=== PATIENT | male | born 1930 | race Caucasian/White ===

== ENCOUNTER 2017-03-22 00:24 | Observation (INO) | payer OTHER, BC ==
[2017-03-22 00:56] VITALS: BMI 29.2
[2017-03-22] MEDS ORDERED: SODIUM CHLORIDE 1,000 ML IV STA (01:07)
--- NOTE | 2017-03-22 01:25 | PDOC ---
History of Present Illness - General History Source: Patient, Spouse, Old Records Exam Limitations: No Limitations - History of Present Illness Initial Comments: 03/22/17 01:27 The patient is an 86 year old male, with a significant past medical history of hyperlipidemia and angina (on Cardizem), who presents to the emergency department with weakness just prior to presentation to the ED. The patient states that he was in his usual state of health earlier this evening. Tonight, the patient states that he was sitting watching TV and dosed off. When he woke up and stood up to go to bed, he suddenly felt weak with associated lightheadedness and nausea. The patient states that he felt like he was going to syncopize but he reports that he did not. He also reports that he did not vomit at that time. EMS was initiated and the patient was brought to the ED for further evaluation. The patients is at the bedside. She reports that she gave the patient Meclizine prior to arrival of EMS. The patient reports that he has never experienced an episode like this in the past. Currently in the ED, the patient states that he continues to feel weak. The patient denies any blurry vision, headache or chest pain. The patient denies fever, chills, vomiting, diarrhea, melena/bpr, abdominal pain or dysuria. The patient denies any recent travel. Allergies: None reported. Past Surgical History: None reported. Social History: Non smoker. Reports one alcoholic drink (beer or wine) with dinner daily. Denies drug use. PCP: Dr. Sylvester Glove Machine Operator: Dr. Hart <Casandra Urbano - Last Filed: 03/22/17 01:28> <Lenny Izquierdo - Last Filed: 03/22/17 01:56> <Dilia Golden - Last Filed: 03/22/17 06:16> - General Stated Complaint: WEAKNESS Time Seen by Provider: 03/22/17 00:44 Past History <Casandra Urbano - Last Filed: 03/22/17 01:28> - Past Medical History Cardiac Disorders: Yes (Coronary Artery Disease) Hypercholesterolemia: Yes - Immunization History Immunization Up to Date: Yes - Psycho/Social/Smoking Cessation Hx Anxiety: No Suicidal Ideation: No Smoking History: Never smoked Hx Alcohol Use: No Drug/Substance Use Hx: No Substance Use Type: None Hx Substance Use Treatment: No <Lenny Izquierdo - Last Filed: 03/22/17 01:56> <Dilia Golden - Last Filed: 03/22/17 06:16> - Past Medical History Allergies/Adverse Reactions: Allergies Allergy/AdvReac Type Severity Reaction Status Date / Time No Known Allergies Allergy Verified 01/14/15 12:52 Home Medications: Ambulatory Orders Aspirin [ASA -] 81 mg PO DAILY 01/08/15 Diltiazem Cd [Cardizem Cd -] 120 mg PO DAILY 01/08/15 Ezetimibe/Simvastatin [Vytorin 10-40 mg Tablet] 1 tab PO DAILY 01/08/15 Review of Systems - Review of Systems Able to Perform ROS?: Yes Comments:: 03/22/17 01:27 CONSTITUTIONAL: +Weakness. No fever, no chills, no fatigue EYES: No visual changes ENT: No ear pain, no sore throat CARDIOVASCULAR: +Lightheadedness. No chest pain, no palpitations RESPIRATORY: No cough, no SOB GI: +Nausea. No abdominal pain, no vomiting, no constipation, no diarrhea GENITOURINARY: No dysuria, no frequency, no hematuria MUSKULOSKELETAL: No back pain, no joint pain, no myalgias SKIN: No rash NEURO: No headache <Casandra Urbano - Last Filed: 03/22/17 01:28> *Physical Exam - Vital Signs Last Vital Signs Temp Pulse Resp BP Pulse Ox 98.6 F 80 25 H 172/96 98 03/22/17 00:47 03/22/17 00:47 03/22/17 00:47 03/22/17 00:47 03/22/17 00:47 - Physical Exam Comments: 03/22/17 01:27 CONSTITUTIONAL: Well-appearing; well-nourished; in no apparent distress. HEAD: Normocephalic; atraumatic. EYES: PERRL; EOM intact. ENMT: External appears normal; normal oropharynx. NECK: Supple; non-tender; no cervical lymphadenopathy. CARD: Normal S1, S2; no murmurs, rubs, or gallops. RESP: Normal chest excursion with respiration; breath sounds clear and equal bilaterally; no wheezes, rhonchi, or rales. ABD: Soft, non-distended; non-tender; no palpable organomegaly, no palpable hernias. EXT: Normal ROM in all four extremities; non-tender to palpation; distal pulses intact. SKIN: Warm, dry, no rash. <Casandra Urbano - Last Filed: 03/22/17 01:28> - Vital Signs Last Vital Signs Temp Pulse Resp BP Pulse Ox 98.6 F 80 25 H 172/96 98 03/22/17 00:47 03/22/17 00:47 03/22/17 00:47 03/22/17 00:47 03/22/17 00:47 - Physical Exam Comments: NEURO: Cranial nerves II through XII are grossly intact; motor is 5 of 54; no pronation drift; no dysmetria; no dysdiadochokinesia; rapid alternating movements are intact bilaterally; finger to nose is intact bilaterally; heel-to- [place] is intact bilaterally; gait-deferred at this time. Fine touch and proprioception are intact bilaterally; <Lenny Izquierdo - Last Filed: 03/22/17 01:56> - Vital Signs Last Vital Signs Temp Pulse Resp BP Pulse Ox 98.6 F 80 25 H 172/96 98 03/22/17 00:47 03/22/17 00:47 03/22/17 00:47 03/22/17 00:47 03/22/17 00:47 <Dilia Golden - Last Filed: 03/22/17 06:16> Heart Score/ECG Review #1 ECG reviewed & interpreted by me at: 00:37 (Vent Rate: 73 bpm. Sinus rhythm with occasional premature ventricular complexes. Unchanged from prior ECG on .) <Casandra Urbano - Last Filed: 03/22/17 01:28> ED Treatment Course - LABORATORY CBC & Chemistry Diagram: 03/22/17 01:25 03/22/17 01:25 - RADIOLOGY Radiology Studies Ordered: Category Date Time Status HEAD CT WITHOUT CONTRAST [CT] Stat CT Scan 03/22/17 01:06 Ordered CHEST X-RAY PORTABLE* [RAD] Stat Radiology 03/22/17 01:06 Ordered <Lenny Izquierdo - Last Filed: 03/22/17 01:56> - LABORATORY CBC & Chemistry Diagram: 03/22/17 01:25 03/22/17 01:25 - ADDITIONAL ORDERS Additional order review: Laboratory Results 03/22/17 03/22/17 03/22/17 04:05 01:25 01:25 INR 1.18 H Sodium 140 Potassium 3.9 Chloride 106 Carbon Dioxide 25 Anion Gap 9 BUN 20 H Creatinine 1.2 Creat Clearance w eGFR 57.68 Random Glucose 116 H Calcium 8.2 L Magnesium 2.2 Total Bilirubin 0.5 AST 32 ALT 22 D Alkaline Phosphatase 94 Creatine Kinase 101 Troponin I < 0.02 Total Protein 7.6 Albumin 3.2 L Urine Color Ltyellow Urine Appearance Clear Urine pH 5.0 Ur Specific [place] 1.014 Urine Protein Negative Urine Glucose (UA) Negative Urine Ketones Negative Urine Blood Negative Urine Nitrite Negative Urine Bilirubin Negative Urine Urobilinogen Negative Ur Leukocyte Esterase Negative 03/22/17 01:25 RBC 3.73 L MCV 96.1 H MCHC 35.2 RDW 13.3 MPV 9.4 Neutrophils % 65.6 D Lymphocytes % 19.0 D Monocytes % 12.4 H Eosinophils % 2.3 D Basophils % 0.7 - Medications Given in the ED: ED Medications Discontinued Medications Generic Name Dose Route Start Last Admin Trade Name Freq PRN Reason Stop Dose Admin Sodium Chloride 1,000 mls @ 1,000 mls/hr 03/22/17 01:07 03/22/17 01:18 Normal Saline - IV 03/22/17 02:06 1,000 mls/hr ASDIR STA Administration <Dilia Golden - Last Filed: 03/22/17 06:16> Medical Decision Making - Medical Decision Making 03/22/17 01:58 Patient is an 86-year-old male with history of hyperlipidemia and angina who presents to the ER by EMS for near syncopal symptoms associated with generalized weakness and malaise with nausea and lightheadedness shortly prior to arrival. In the ER, patient is awake and alert, mildly hypertensive, with no focal neurological deficits. EKG shows no evidence of acute ischemia and infrequent PVCs are noted. Differential diagnoses includes vasovagal syndrome versus paroxysmal atrial fibrillation versus Rosales Jona (given patient's recent bout of earache). Will obtain CT head to rule out intracranial pathology ; we'll obtain CBC/CMP/cardiac profile/magnesium/UA. Will hydrate. Will reassess. <Lenny Izquierdo - Last Filed: 03/22/17 01:56> - Medical Decision Making 03/22/17 05:12 Patient Name: Cuate Beard This is a preliminary report by imaging motion picture projectionist Exam : Noncontrast CT of head Images: 148 Clinical indication: Weakness. Dizziness. Findings: Multiple axial images were obtained of the brain without contrast. There is no mass-effect, midline shift or hemorrhage. There is no intra-axial or extra-axial fluid collection. Atrophic involutional changes and chronic ischemic periventricular white matter changes are noted. The visualized portions of the paranasal sinuses are clear. The middle ear cavities and mastoids are clear. Impression: No mass effect or intracranial hemorrhage. THIS DOCUMENT HAS BEEN ELECTRONICALLY SIGNED Rusty Noland M.D. Pt will be admitted to the hospitalist. He is a Dr. Sylvester patient. Dr. Smith is his supervisor wall mirror department. 03/22/17 06:11 Dr. Luna is covering Dr. Sylvester and he will see the patient on consult <Dilia Golden - Last Filed: 03/22/17 06:16> *DC/Admit/Observation/Transfer - Attestations Scribe Attestion: 03/22/17 01:27 Documentation prepared by Casandra Urbano, acting as medical anthropology director for Lenny Izquierdo MD. <Casandra Urbano - Last Filed: 03/22/17 01:28> - Attestations Physician Attestion: 03/22/17 01:56 The documentation was prepared by the scribe under my direct supervision. I have reviewed the documentation which correctly represents the findings, medical decision-making and critical action taken by me. <Lenny Izquierdo - Last Filed: 03/22/17 01:56> - Discharge Dispostion Admit: Yes <Dilia Golden - Last Filed: 03/22/17 06:16> Diagnosis at time of Disposition: Dizziness, Pre-syncope, Weakness - Discharge Dispostion Condition at time of disposition: Guarded - Referrals Referrals: Stanley Sylvester MD [Primary Care Provider] -
[2017-03-22 01:35] LABS: BASOPHIL 0.7 % (0-2.0); EOSINOPHIL 2.3 % (0-4.5); MCH 33.8 pg (25.7-33.7); MCHC 35.2 g/dl (32.0-35.9); MEAN CELL VOLUME 96.1 fl (80-96); MEAN PLT VOLUME 9.4 fl (7.5-11.1); NEUTROPHILS 65.6 % (42.8-82.8); PLATELET COUNT 158 K/MM3 (134-434); RDW 13.3 % (11.9-15.9); WHITE BLOOD COUNT 4.2 K/mm3 (4.0-10.0)
[2017-03-22 01:56] LABS: ALBUMIN 3.2 g/dl (3.4-5.0); ANION GAP 9 (8-16); CALCIUM 8.2 mg/dL (8.5-10.1); CO2 25 mmol/L (21-32); COCKROFT - GAULT 65.26; CREATININE 1.2 mg/dL (0.7-1.3); GLUCOSE,RANDOM 116 mg/dL (74-106); INR 1.18 (0.82-1.09); MAGNESIUM 2.2 mg/dL (1.8-2.4); SGOT/AST 32 U/L (15-37); SGPT/ALT 22 U/L (12-78)
[2017-03-22 02:01] LABS: ALK PHOS 94 U/L (45-117); BILIRUBIN,TOTAL 0.5 mg/dL (0.2-1.0); TOT PROT 7.6 g/dl (6.4-8.2); TROPONIN I < 0.02 ng/ml (0.00-0.05)
[2017-03-22 04:17] LABS: URINE APPEARANCE CLEAR; URINE BILIRUBIN NEGATIVE (NEGATIVE); URINE BLOOD NEGATIVE (NEGATIVE); URINE COLOR LTYELLOW; URINE GLUCOSE (UA) NEGATIVE (NEGATIVE); URINE KETONE NEGATIVE (NEGATIVE); URINE LEUK ESTERASE NEGATIVE (NEGATIVE); URINE NITRITE NEGATIVE (NEGATIVE); URINE PROTEIN NEGATIVE (NEGATIVE); URINE UROBILINOGEN NEGATIVE E.U./dl (0.2-1.0)
[2017-03-22] MEDS ORDERED: ASPIRIN 81 MG CHEWABLE TABLETS ONE (09:54)
[2017-03-22] MEDS: ATORVASTATIN CA 20 MG TABLET (FP) PO SCH (10:05)
[2017-03-22] MEDS: EZETIMIBE 10 MG TABLET (FP) PO SCH (10:05)
[2017-03-22] MEDS: ASPIRIN 81 MG CHEWABLE TABLETS PO SCH (10:05)
[2017-03-22 10:13] LABS: THYROID STIMULATING HORMONE 2.33 uIU/ml (0.358-3.74); TROPONIN I < 0.02 ng/ml (0.00-0.05)
--- NOTE | 2017-03-22 11:07 | HP ---
CHIEF COMPLAINT: "I almost passed out" PCP: Dr Montaño Cardio: Dr Hart HISTORY OF PRESENT ILLNESS: This is an 86 yo M with PMH of CAD, angina (on cardizem), sleep apnea, Cured colon CA s/p resection 3 yrs ago (no chemo/rad) and prostate CA s/p prostatectomy 20 yrs ago, who presents to ed after a near syncopal episode last night. Patient states that he fell asleep in a sitting position and when woke up , still in sitting position, he felt a hot flash, diaphoretic and dizziness. when he tried to get up to go to bathroom, he felt nauseaous and weak. There was no associated loc, chest pain, palpitations or sob. He did not fall. these symptoms lasted for an hr and began to resolve when he got to ED. These symptoms have never occurred before. He suffers from frequency due to prostatectomy and avoids hydrating because he does not like to get up at night to go to bathroom. He denies angina but states that he gets out of breath and dizzy after exercising on his bicycle. He denies palpitations, sob, cough or history of arrythmia. He does have orthopnea and sleep apnea (not on bipap) but has not required increased incline for sleep. He denies weight gain, anorexia or LE edema. He had a normal stress test several years ago. He has never had an CO, arrythmia or heart failure. He denies recent URI, abd pain, diarrhea or dysuria. ER course was notable for: (1)Labs, ekg (2)cxr, head CT (3)1L NS Recent Travel: denies PAST MEDICAL HISTORY: as above PAST SURGICAL HISTORY: as above Social History: lives with Smoking: never Alcohol: 1 drink per day Drugs: never Family History: heart disease, hld Allergies No Known Allergies Allergy (Verified 01/14/15 12:52) HOME MEDICATIONS: Home Medications Medication Instructions Recorded Aspirin [ASA -] 81 mg PO DAILY 01/08/15 Diltiazem Cd [Cardizem Cd -] 120 mg PO DAILY 01/08/15 Ezetimibe/Simvastatin [Vytorin 1 tab PO DAILY 01/08/15 10-40 mg Tablet] REVIEW OF SYSTEMS CONSTITUTIONAL: Absent: fever, chills, loss of appetite, weight change HEENT: Absent: rhinorrhea, nasal congestion, throat pain CARDIOVASCULAR: Absent: chest pain, syncope, palpitations, irregular heart rate, peripheral edema RESPIRATORY: Absent: cough, shortness of breath GASTROINTESTINAL: Absent: abdominal pain, abdominal distension, vomiting, diarrhea, constipation, melena, hematochezia GENITOURINARY: Absent: dysuria, flank pain MUSCULOSKELETAL: Absent: myalgia, arthralgia SKIN: Absent: rash, itching, pallor HEMATOLOGIC/IMMUNOLOGIC: Absent: easy bleeding, easy bruising ENDOCRINE: Absent: unexplained weight gain, unexplained weight loss, heat intolerance, cold intolerance NEUROLOGIC: Absent: headache, focal weakness or paresthesias, seizure PSYCHIATRIC: Absent: anxiety, depression PHYSICAL EXAMINATION Vital Signs - 24 hr 03/22/17 03/22/17 09:04 09:05 Pulse Rate [ 80 82 Right Radial] Blood Pressure 159/100 140/71 [Left Arm] GENERAL: Awake, alert, and fully oriented, in no acute distress. HEAD: Normal with no signs of trauma. EYES: Pupils equal, round and reactive to light, extraocular movements intact, sclera anicteric, conjunctiva clear. No lid lag. EARS, NOSE, THROAT: Moist mucous membranes. NECK: supple without JVD LUNGS: Breath sounds equal, mild bibasilar crackle, otherwise clear to auscultation bilaterally. HEART: Regular rate and rhythm, normal S1 and S2, grade 2 systolic murmur ABDOMEN: Soft, nontender, not distended, normoactive bowel sounds MUSCULOSKELETAL: No CVA tenderness. UPPER EXTREMITIES: 2+ pulses, warm, well-perfused. No peripheral edema. LOWER EXTREMITIES: 2+ pulses, warm, well-perfused. No calf tenderness. trace L ankle peripheral edema. NEUROLOGICAL: Cranial nerves II-XII intact. Normal speech. Normal gait. RUE 5/ 5 strength, GUERDA 4/5 bicep and roll former, 5/5 tricep, shoulders. LE 5/5 b/l strength PSYCHIATRIC: Cooperative. Good eye contact. Appropriate mood and affect. SKIN: Warm, dry Laboratory Results - last 24 hr 03/22/17 09:22 Troponin I < 0.02 B-Natriuretic Peptide 188.47 TSH 2.33 Free T4 0.90 ASSESSMENT/PLAN: This is an 86 yo M with PMH of CAD, angina (on cardizem), sleep apnea, Cured colon CA s/p resection 3 yrs ago (no chemo/rad) and prostate CA s/p prostatectomy 20 yrs ago, who presents to ed after a near syncopal episode last night. Near syncope -likely vasovagal/orthostatic -positive orthostatic vitals -history of water restriction -EKG l axis, sinus, PVCs, no change from prior, CXR poor inspiratory effort may falsely appear as cardiomegaly and bibasilar conbestion -tele: frequent PVC's -neg tro x2 and neg BNP -TSH, fT4 whl -Lipid panel -r/o arrythmia: tele monitoring -Cardio consult; TTE or obtain recent TTE records -IV hydration; slow careful positional change HLD -continue ezetimibe/symvastatin 10-40 or formulary equivalent CAD -asa 81 -cardizem 120 d Sleep apnea -not on bipap FEN NS@75 lytes stable Na restricted diet Dispo: obs in med [facility]. Problem List - Problem (1) Dizziness Code(s): R42 - DIZZINESS AND GIDDINESS (2) Pre-syncope Code(s): R55 - SYNCOPE AND COLLAPSE (3) Weakness Code(s): R53.1 - WEAKNESS (4) HLD (hyperlipidemia) Code(s): E78.5 - HYPERLIPIDEMIA, UNSPECIFIED (5) CAD (coronary artery disease) Code(s): I25.10 - ATHSCL HEART DISEASE OF [place] CORONARY ARTERY W/O ANG PCTRS (6) History of prostate cancer Code(s): Z85.46 - PERSONAL HISTORY OF MALIGNANT NEOPLASM OF PROSTATE (7) History of colon cancer, stage I Code(s): Z85.038 - PERSONAL HISTORY OF MALIGNANT NEOPLASM OF LARGE INTESTINE (8) Volume depletion Code(s): E86.9 - VOLUME DEPLETION, UNSPECIFIED Visit type - Emergency Visit Emergency Visit: Yes ED Registration Date: 03/22/17 Care time: The patient presented to the Emergency Department on the above date and was hospitalized for further evaluation of their emergent condition. - New Patient This patient is new to me today: Yes Date on this admission: 03/22/17 - Critical Care Critical Care patient: No
[2017-03-22] MEDS ORDERED: SODIUM CHLORIDE 1,000 ML IV SCH ×2 (11:30→14:00)
--- NOTE | 2017-03-22 11:42 | PN ---
Teaching Attending Note Name of Resident: Briseyda Johnson ATTENDING PHYSICIAN STATEMENT I saw and evaluated the patient. I reviewed the resident's note and discussed the case with the resident. I agree with the resident's findings and plan as documented. SUBJECTIVE: CC: near syncope HPI: last night slept while watching TV. when he wok up , and before trying to get up he felt light headed , with nauseous feeling . denied vertigo, CRISOSTOMO , visual changes or any CP or SOB. he aske his to help him to bathroom, where he had both BM and urine , continued to feel same symptoms , but no LOC, and no fall, so ambulance was called. at time he arrived to ER his symptoms already improved. mr. Beard , informed Dr. Johnson that his sx started after he got up to go to bathroom. last stress was years ago m, was told it was normal, denied exertional cp but has SOB with exertion . denies dysuria , abd pain , weakness, numbness or tingling OBJECTIVE: NAD ,AAOx3. CV; RRR. no JVD Lungs: CATB Abd : obese , soft, NT, ND , nL BS ext : trace edema on L lower leg . no erythema or tenderness Neuro : EOMI, round equal pupils , nof acial droop, strength 5/5 in upper and lower ext proximally and distally, sensation to light touch nl . reflexes 1+ knee jerk and biceps b/l ASSESSMENT AND PLAN: 86 y/o gentleman with h/o HTN, HLP, exertional SOB , and other medical problems who presented with light headness, and nausea ( near syncope symptoms ) 1- Symptoms of nausea and light headedness which lasted for > 1 hr, might be due to tachy or bharati arrhythmias . Especially with frequent PVC on tele orthostatic VS are positive , so this could be contributing. PA is unlikely EKG with L axis deviation , no ST , TW changes , and PVC were seen tele with frequent PVC s - tele monitoring - check another trop - give IVF , pt does not appear in fluid over load, BNP is low , and has no crackles. cxray looks more congested as it has poor exp effort - card opinion appreciated. - might need an event monitor after dc - echo now or as out pt , depends on availability of recent echo 2- HLP : cont meds 3- HTN: cont cardizem, if he has low EF might benefit from ACEI. monitor with fluids 4- dispo : Observe for now
--- NOTE | 2017-03-22 17:11 | CON.CARD ---
Consult Consult Specialty:: Cardiology Referred by:: Hospitalist Medicine Reason for Consultation:: Near syncope - History of Present Illness Chief Complaint: Near syncope History of Present Illness: 86 yo male h/o HTN, chol, presented with positional light-headedness, diaphoresis, weakness, nausea and dry heaves after getting up to go to bathroom without true syncope, chest pain, dyspnea, palpitations, orthopnea, PND or LE edema. Symptoms have since resolved, able to tolerate meals. l - History Source History Provided By: Patient Limitations to Obtaining History: No Limitations - Alcohol/Substance Use Hx Alcohol Use: No - Smoking History Smoking history: Never smoked Home Medications - Allergies Allergies/Adverse Reactions: Allergies Allergy/AdvReac Type Severity Reaction Status Date / Time No Known Allergies Allergy Verified 01/14/15 12:52 - Home Medications Home Medications: Ambulatory Orders Aspirin [ASA -] 81 mg PO DAILY 01/08/15 Diltiazem Cd [Cardizem Cd -] 120 mg PO DAILY 01/08/15 Ezetimibe/Simvastatin [Vytorin 10-40 mg Tablet] 1 tab PO DAILY 01/08/15 Review of Systems - Review of Systems Neurological: reports: Dizziness Vital Signs: Vital Signs Temperature 97.8 F 03/22/17 12:21 Pulse Rate 69 03/22/17 12:21 Respiratory Rate 18 03/22/17 12:21 Blood Pressure 122/81 03/22/17 12:21 O2 Sat by Pulse Oximetry (%) 95 03/22/17 12:21 Constitutional: Yes: No Distress Neck: Yes: Supple Respiratory: Yes: Regular, CTA Bilaterally Gastrointestinal: Yes: Normal Bowel Sounds, Soft Cardiovascular: Yes: Regular Rate and Rhythm JVD: No Carotid Bruit: No Heart Sounds: Yes: S1, S2 Murmur: Yes: Systolic Murmur, Grade 1 Edema: No - Other Data Labs, Other Data: INR, PTT INR 1.18 (0.82-1.09) H 03/22/17 01:25 Troponin, BNP 03/22/17 09:22 Troponin I < 0.02 B-Natriuretic Peptide 188.47 Troponin, BNP 03/22/17 09:22 Troponin I < 0.02 B-Natriuretic Peptide 188.47 Imaging - Results Chest X-ray: Report Reviewed (Congestion) Cat Scan: Report Reviewed (HCT: No acute changes) Problem List - Problems (1) CAD (coronary artery disease) Code(s): I25.10 - ATHSCL HEART DISEASE OF [place] CORONARY ARTERY W/O ANG PCTRS Qualifiers: Coronary Disease-Associated Artery/Lesion type: [place] artery [place] vs. transplanted heart: [place] heart Associated angina: without angina Qualified Code(s): I25.10 - Atherosclerotic heart disease of [place] coronary artery without angina pectoris (2) HLD (hyperlipidemia) Code(s): E78.5 - HYPERLIPIDEMIA, UNSPECIFIED Qualifiers: Hyperlipidemia type: pure hypercholesterolemia Qualified Code(s): E78.00 - Pure hypercholesterolemia, unspecified; E78.0 - Pure hypercholesterolemia (3) Pre-syncope Code(s): R55 - SYNCOPE AND COLLAPSE (4) Hypertensive arteriosclerotic cardiovascular disease Code(s): I11.9 - HYPERTENSIVE HEART DISEASE WITHOUT HEART FAILURE (5) Premature ventricular beat Code(s): I49.3 - VENTRICULAR PREMATURE DEPOLARIZATION (6) Diastolic dysfunction Code(s): I51.9 - HEART DISEASE, UNSPECIFIED Assessment/Plan 1. Near syncope, likely neurocardiogenic etiology with positive orthostatic VS 2. PVC 3. HTN 4. Hyperlipidemia 5. Diastolic dysfunction P:1. Ruled out for MS 2. Echocardiogram to assess LV and valve fxn, holter to assess arrhythmia burden 3. Continue ASA 81 qd, Lipitor 20 qd, Zetia 10 qd, Cardizem CD 120 qd, oral hydration 4. Will review outpatient w/u, addressed abortive maneuvers once prodromal sxs are experienced 5. Thank you for consultative opportunity
[2017-03-23 08:15] LABS: MCHC 35.7 g/dl (32.0-35.9); MEAN CELL VOLUME 95.4 fl (80-96); MEAN PLT VOLUME 8.6 fl (7.5-11.1); PLATELET COUNT 154 K/MM3 (134-434); RDW 13.3 % (11.9-15.9); WHITE BLOOD COUNT 3.7 K/mm3 (4.0-10.0)
[2017-03-23 08:30] LABS: CALCIUM 8.3 mg/dL (8.5-10.1); COCKROFT - GAULT 71.84; CREATININE 1.1 mg/dL (0.7-1.3); MAGNESIUM 2.2 mg/dL (1.8-2.4); PHOSPHOROUS 2.7 mg/dL (2.5-4.9)
[2017-03-23] MEDS: ASPIRIN 81 MG CHEWABLE TABLETS PO SCH (09:56)
[2017-03-23] MEDS: ATORVASTATIN CA 20 MG TABLET (FP) PO SCH (09:57)
[2017-03-23] MEDS: EZETIMIBE 10 MG TABLET (FP) PO SCH (10:00)
--- NOTE | 2017-03-23 13:09 | PN ---
Progress Note (short form) - Note Progress Note: Subjective: no cp or palpitations , no fever ro chills, no SOB. Objective: Vital Signs: Last Vital Signs Temp Pulse Resp BP Pulse Ox 97.8 F 90 20 118/70 97 03/23/17 07:00 03/23/17 09:53 03/23/17 07:00 03/23/17 09:53 03/23/17 07:00 Laboratory Results - last 24 hr 03/23/17 03/23/17 03/23/17 06:00 06:00 06:00 WBC 3.7 L RBC 3.88 L Hgb 13.2 Hct 37.0 MCV 95.4 MCHC 35.7 RDW 13.3 Plt Count 154 MPV 8.6 Sodium 141 Potassium 4.4 Chloride 108 H Carbon Dioxide 26 Anion Gap 7 L BUN 15 D Creatinine 1.1 Random Glucose 91 D Calcium 8.3 L Phosphorus 2.7 Magnesium 2.2 Triglycerides 155 Cancelled Cholesterol 161 Cancelled Total LDL Cholesterol 93 Cancelled HDL Cholesterol 49 Cancelled Physical Exam: NAD ,AAOx3. CV; regularly irreg . no JVD Lungs: CATB ext : no edema ASSESSMENT AND PLAN: 86 y/o gentleman with h/o HTN, HLP, exertional SOB , and other medical problems who presented with light headness, and nausea ( near syncope symptoms ) 1- Episode of light headedness, and nausea : are probably due to arrhythmias ( frequent PVCs or other type) on tele , PVCs are more frequent than yesterday. Pt is still not symptomatic - will discuss with cardiology the possibility of switching cardizem to metoprolol to decrease frequency of PCS. - cont tele monnitor - will get echo in am - will probably need event monitor as out pt - orthostatic VS are nl today . dc IVF - although cxray looks more congested today, pt has no sx , and lung exam is clear 2- HLP : cont meds 3- HTN:change cardizem to BB if card is OK with it 4- dispo : possible dc tomorrow after echo Visit type - Emergency Visit Emergency Visit: Yes ED Registration Date: 03/22/17 Care time: The patient presented to the Emergency Department on the above date and was hospitalized for further evaluation of their emergent condition. - New Patient This patient is new to me today: No - Critical Care Critical Care patient: No
--- NOTE | 2017-03-23 14:24 | PN ---
Progress Note, Physician History of Present Illness: No further near or true syncope or prodromal sxs. Cardizem changed to Lopressor for frequent PVC. - Current Medication List Current Medications: Active Medications Aspirin (Asa -) 81 mg PO DAILY [facility] Last Admin: 03/23/17 09:56 Dose: 81 mg Atorvastatin Calcium (Lipitor -) 20 mg PO DAILY [facility] Last Admin: 03/23/17 09:57 Dose: 20 mg Ezetimibe (Zetia -) 10 mg PO DAILY [facility] Last Admin: 03/23/17 10:00 Dose: Not Given Metoprolol Tartrate (Lopressor -) 12.5 mg PO ONCE ONE Stop: 03/23/17 20:01 Metoprolol Tartrate (Lopressor -) 25 mg PO BID [facility] - Objective Vital Signs: Vital Signs Temperature 97.8 F 03/23/17 07:00 Pulse Rate 90 03/23/17 09:53 Respiratory Rate 20 03/23/17 07:00 Blood Pressure 118/70 03/23/17 09:53 O2 Sat by Pulse Oximetry (%) 97 03/23/17 07:00 Constitutional: Yes: No Distress, Calm Neck: Yes: Supple Cardiovascular: Yes: Regular Rate and Rhythm, Other (with ectopics) Respiratory: Yes: Regular, Diminished Gastrointestinal: Yes: Normal Bowel Sounds, Soft Edema: No Labs: CBC, BMP 03/23/17 06:00 03/23/17 06:00 INR, PTT INR 1.18 (0.82-1.09) H 03/22/17 01:25 - ....Imaging EKG: Report Reviewed (Tele: [facility]) Problem List - Problems (1) CAD (coronary artery disease) Code(s): I25.10 - ATHSCL HEART DISEASE OF [place] CORONARY ARTERY W/O ANG PCTRS Qualifiers: Coronary Disease-Associated Artery/Lesion type: [place] artery [place] vs. transplanted heart: [place] heart Associated angina: without angina Qualified Code(s): I25.10 - Atherosclerotic heart disease of [place] coronary artery without angina pectoris (2) HLD (hyperlipidemia) Code(s): E78.5 - HYPERLIPIDEMIA, UNSPECIFIED Qualifiers: Hyperlipidemia type: pure hypercholesterolemia Qualified Code(s): E78.00 - Pure hypercholesterolemia, unspecified; E78.0 - Pure hypercholesterolemia (3) Pre-syncope Code(s): R55 - SYNCOPE AND COLLAPSE (4) Hypertensive arteriosclerotic cardiovascular disease Code(s): I11.9 - HYPERTENSIVE HEART DISEASE WITHOUT HEART FAILURE (5) Premature ventricular beat Code(s): I49.3 - VENTRICULAR PREMATURE DEPOLARIZATION (6) Diastolic dysfunction Code(s): I51.9 - HEART DISEASE, UNSPECIFIED Assessment/Plan 1. Near syncope, likely neurocardiogenic etiology with positive orthostatic VS 2. PVC 3. HTN 4. Hyperlipidemia 5. Diastolic dysfunction P:1. Ruled out for [place] 2. Echocardiogram to assess LV and valve fxn, holter to assess arrhythmia burden 3. Continue ASA 81 qd, Lipitor 20 qd, Zetia 10 qd, changed Cardizem CD 120 qd to Lopressor 25 bid with monitor clinical response 4. Will review outpatient w/u, addressed abortive maneuvers once prodromal sxs are experienced
[2017-03-23] MEDS ORDERED: METOPROLOL TARTRATE 25 MG TABLET (FP) PO ONE (20:00)
--- NOTE | 2017-03-24 08:37 | PN ---
Progress Note, Physician Chief Complaint: Not in distress History of Present Illness: Patient was seen and examined. Awake and alert. Chart was reviewed Denies chest pain, SOB or palpitations - Current Medication List Current Medications: Active Medications Aspirin (Asa -) 81 mg PO DAILY [facility] Last Admin: 03/23/17 09:56 Dose: 81 mg Atorvastatin Calcium (Lipitor -) 20 mg PO DAILY [facility] Last Admin: 03/23/17 09:57 Dose: 20 mg Ezetimibe (Zetia -) 10 mg PO DAILY [facility] Last Admin: 03/23/17 10:00 Dose: Not Given Metoprolol Tartrate (Lopressor -) 25 mg PO BID [facility] - Objective Vital Signs: Vital Signs Temperature 98 F 03/24/17 05:31 Pulse Rate 18 L 03/24/17 05:31 Respiratory Rate 68 H 03/24/17 05:31 Blood Pressure 132/70 03/24/17 05:31 O2 Sat by Pulse Oximetry (%) 98 03/23/17 23:10 Neck: Yes: Supple Cardiovascular: Yes: Regular Rate and Rhythm, S1, S2 Respiratory: Yes: CTA Bilaterally Gastrointestinal: Yes: Normal Bowel Sounds, Soft. No: Tenderness Edema: No Labs: CBC, BMP 03/23/17 06:00 03/23/17 06:00 INR, PTT INR 1.18 (0.82-1.09) H 03/22/17 01:25 Problem List - Problems (1) CAD (coronary artery disease) Code(s): I25.10 - ATHSCL HEART DISEASE OF [place] CORONARY ARTERY W/O ANG PCTRS Qualifiers: Coronary Disease-Associated Artery/Lesion type: [place] artery [place] vs. transplanted heart: [place] heart Associated angina: without angina Qualified Code(s): I25.10 - Atherosclerotic heart disease of [place] coronary artery without angina pectoris (2) Diastolic dysfunction Code(s): I51.9 - HEART DISEASE, UNSPECIFIED (3) Dizziness Code(s): R42 - DIZZINESS AND GIDDINESS (4) HLD (hyperlipidemia) Code(s): E78.5 - HYPERLIPIDEMIA, UNSPECIFIED Qualifiers: Hyperlipidemia type: pure hypercholesterolemia Qualified Code(s): E78.00 - Pure hypercholesterolemia, unspecified; E78.0 - Pure hypercholesterolemia (5) Pre-syncope Code(s): R55 - SYNCOPE AND COLLAPSE (6) Premature ventricular beat Code(s): I49.3 - VENTRICULAR PREMATURE DEPOLARIZATION Assessment/Plan 1. Near syncope, likely neurocardiogenic etiology with positive orthostasis 2. PVC 3. HTN 4. Hyperlipidemia 5. Diastolic dysfunction PLAN: 1. Echocardiography to assess LV and valve function, and Holter to assess arrhythmia burden 2. Continue ASA 81 mg qd, Lipitor 20 mg qd and Zetia 10 mg qd. Continue Lopressor 25 mg bid Further plans are to follow Kodak Wu MD
[2017-03-24] MEDS ORDERED: METOPROLOL TARTRATE 25 MG TABLET (FP) PO SCH (10:00)
[2017-03-24] MEDS: ASPIRIN 81 MG CHEWABLE TABLETS PO SCH (10:07)
[2017-03-24] MEDS: EZETIMIBE 10 MG TABLET (FP) PO SCH (10:07)
[2017-03-24] MEDS: ATORVASTATIN CA 20 MG TABLET (FP) PO SCH (10:07)
--- NOTE | 2017-03-24 12:16 | EKG ---
Test Reason : Blood Pressure : / mmHG Vent. Rate : 073 BPM Atrial Rate : 073 BPM P-R Int : 160 ms QRS Dur : 090 ms QT Int : 384 ms P-R-T Axes : 016 -08 017 degrees QTc Int : 423 ms SINUS RHYTHM WITH OCCASIONAL PREMATURE VENTRICULAR COMPLEXES OTHERWISE NORMAL ECG WHEN COMPARED WITH ECG OF 14-JAN-2015 14:33, PREMATURE VENTRICULAR COMPLEXES ARE NOW PRESENT Confirmed by PAUL HILARIO MD ([id number]) on 03/24/2017 12:16:28 PM Referred By: Confirmed By:PAUL HILARIO MD
--- NOTE | 2017-03-24 13:41 | PN ---
Teaching Attending Note Name of Resident: Briseyda Johnson ATTENDING PHYSICIAN STATEMENT I saw and evaluated the patient. I reviewed the resident's note and discussed the case with the resident. I agree with the resident's findings and plan as documented. SUBJECTIVE: no dizziness, palpitations , or cP or SOB. OBJECTIVE: NAD ,AAOx3. CV; regularly irreg . no JVD Lungs: CATB ext : no edema ASSESSMENT AND PLAN: 86 y/o gentleman with h/o HTN, HLP, exertional SOB , and other medical problems who presented with light headness, and nausea ( near syncope symptoms ) 1- Episode of light headedness, and nausea : are probably due to arrhythmias ( frequent PVCs or other type) On tele today, PVCs are slightly less frequent than yesterday - cont BB bID , BP tolerated - echo pending - orthostatic hypotension resolved - holter . 2- HLP: cont meds 3- HTN: BB depending on Echo result , likely will dc home today
[2017-03-24 13:47] VITALS: PULSE 20
[2017-03-24 13:59] VITALS: BP 145/80; TEMP 98.2
--- NOTE | 2017-03-24 14:59 | DS ---
Physical Exam: SUBJECTIVE: Patient seen and examined Patient resting in bed NAD. No acute events. Frequent pvc's on telemetry. Afebrile and hemodynamically stable. Feels well. No episodes of dizziness. Deneis chest pain, sob, palpitations, n/v, sob, cough. OBJECTIVE: Vital Signs Period Temp Pulse Resp BP Sys/[place] Pulse Ox Last 24 Hr 97.8 F-98.6 F 18-88 18-74 132-150/70-86 97-98 PHYSICAL EXAM GENERAL: Awake, alert, and fully oriented, in no acute distress. HEAD: Normal with no signs of trauma. EYES: Pupils equal, round and reactive to light, extraocular movements intact, sclera anicteric, conjunctiva clear. No lid lag. EARS, NOSE, THROAT: Moist mucous membranes. NECK: supple without JVD LUNGS: Breath sounds equal, mild bibasilar crackle, otherwise clear to auscultation bilaterally. HEART: Regular rate and rhythm, normal S1 and S2, grade 2 systolic murmur ABDOMEN: Soft, nontender, not distended, normoactive bowel sounds MUSCULOSKELETAL: No CVA tenderness. UPPER EXTREMITIES: 2+ pulses, warm, well-perfused. No peripheral edema. LOWER EXTREMITIES: 2+ pulses, warm, well-perfused. No calf tenderness. trace L ankle peripheral edema. NEUROLOGICAL: Cranial nerves II-XII intact. Normal speech. Normal gait. RUE 5/ 5 strength, GUERDA 4/5 bicep and barkeeper, 5/5 tricep, shoulders. LE 5/5 b/l strength PSYCHIATRIC: Cooperative. Good eye contact. Appropriate mood and affect. SKIN: Warm, dry LABS HOSPITAL COURSE: Date of Admission:03/22/17 This is an 86 yo M with PMH of CAD, angina (on cardizem), sleep apnea, Cured colon CA s/p resection 3 yrs ago (no chemo/rad) and prostate CA s/p prostatectomy 20 yrs ago, who presents to ed after a near syncopal episode last night. Patient states that he fell asleep in a sitting position and when woke up , still in sitting position, he felt a hot flash, diaphoretic and dizziness. when he tried to get up to go to bathroom, he felt nauseaous and weak. There was no associated loc, chest pain, palpitations or sob. He did not fall. these symptoms lasted for an hr and began to resolve when he got to ED. These symptoms have never occurred before. He suffers from frequency due to prostatectomy and avoids hydrating because he does not like to get up at night to go to bathroom. He denies angina but states that he gets out of breath and dizzy after exercising on his bicycle. He denies palpitations, sob, cough or history of arrythmia. He does have orthopnea and sleep apnea (not on bipap) but has not required increased incline for sleep. He denies weight gain, anorexia or LE edema. He had a normal stress test several years ago. He has never had an NV, arrythmia or heart failure. He denies recent URI, abd pain, diarrhea or dysuria. Pateint was seen by cardiology and assessed to have suffered a near syncope, likely neurocardiogenic etiology with positive orthostasis. Due to frequent PVCs on telemetry, his cardizem was changed to Metoprolol 25 bid. His TTE was unremarkable, trace MR, trace TR, mildly dilated L and R atria, normal EF. He was discharged with plan to wear an event monitor per outpatient cardiology. Date of Discharge: 03/24/17 Minutes to complete discharge: 56 (na) Discharge Summary Reason For Visit: WEAKNESS,PRE-SYNCOPE Current Active Problems CAD (coronary artery disease) (Acute) Diastolic dysfunction (Acute) Dizziness (Acute) HLD (hyperlipidemia) (Acute) History of colon cancer, stage I (Acute) History of prostate cancer (Acute) Hypertensive arteriosclerotic cardiovascular disease (Acute) Pre-syncope (Acute) Premature ventricular beat (Acute) Volume depletion (Acute) Weakness (Acute) Condition: Good - Instructions Diet, Activity, Other Instructions: You were in the hospital because you almost passed out. You were seen by cardiology. This happened most likely because of your bodys disregulation of blood pressure with position change and because you were dehydrated. We did not find anything serious on your cardiac monitoring. Please drink plenty of water and get up slowly from lying or sitting position. You have many premature beats of cardiac monitoring. Stop taking cardizem and instead take Metoprolol 25mg twice a day. Follow up with Dr Hart this week to place an event monitor to detect possible cardiac events. Follow up with primary care doctor in a week. Return to hospital if symptoms worsen. Referrals: Stanley Sylvester MD [Primary Care Provider] - 1 Week Bruce Hart MD [Staff Physician] - 1 Week Disposition: HOME - Home Medications Comprehensive Discharge Medication List: Ambulatory Orders Aspirin [ASA -] 81 mg PO DAILY 01/08/15 Ezetimibe/Simvastatin [Vytorin 10-40 mg Tablet] 1 tab PO DAILY 01/08/15 Metoprolol Tartrate [Lopressor -] 25 mg PO BID #60 tablet 03/24/17 Problem List - Problems (1) Dizziness Code(s): R42 - DIZZINESS AND GIDDINESS (2) Pre-syncope Code(s): R55 - SYNCOPE AND COLLAPSE (3) Weakness Code(s): R53.1 - WEAKNESS (4) HLD (hyperlipidemia) Code(s): E78.5 - HYPERLIPIDEMIA, UNSPECIFIED Qualifiers: Hyperlipidemia type: pure hypercholesterolemia Qualified Code(s): E78.00 - Pure hypercholesterolemia, unspecified; E78.0 - Pure hypercholesterolemia (5) CAD (coronary artery disease) Code(s): I25.10 - ATHSCL HEART DISEASE OF [place] CORONARY ARTERY W/O ANG PCTRS Qualifiers: Coronary Disease-Associated Artery/Lesion type: [place] artery [place] vs. transplanted heart: [place] heart Associated angina: without angina Qualified Code(s): I25.10 - Atherosclerotic heart disease of [place] coronary artery without angina pectoris (6) History of prostate cancer Code(s): Z85.46 - PERSONAL HISTORY OF MALIGNANT NEOPLASM OF PROSTATE (7) History of colon cancer, stage I Code(s): Z85.038 - PERSONAL HISTORY OF MALIGNANT NEOPLASM OF LARGE INTESTINE (8) Volume depletion Code(s): E86.9 - VOLUME DEPLETION, UNSPECIFIED This patient is new to me today: No Emergency Visit: Yes ED Registration Date: 03/22/17 Care time: The patient presented to the Emergency Department on the above date and was hospitalized for further evaluation of their emergent condition. Critical Care patient: No - Discharge Referral Referred to [facility] Med P.C.: No
== END 2017-03-24 15:57 | disposition home or self-care (01) ==
LOC: JER 00:24 → JERBED 06:17 → UNDOADMOB 06:24 → JERBED 06:24 → J4W 13:34
PROVIDERS: ADMIT Internal Medicine; ATTEND Internal Medicine
PROC: 3E0337Z Introduction of Electrolytic and Water Balance Substance into Peripheral Vein, Percutaneous Approach (ICD-10-PCS; principal; 2017-03-22)
DX: R55 Syncope and collapse (principal); R53.1 Weakness; R42 Dizziness and giddiness; E78.5 Hyperlipidemia, unspecified; I49.3 Ventricular premature depolarization; I51.9 Heart disease, unspecified; I25.10 Atherosclerotic heart disease of native coronary artery without angina pectoris; E86.9 Volume depletion, unspecified; G47.30 Sleep apnea, unspecified; Z79.82 Long term (current) use of aspirin; Z98.0 Intestinal bypass and anastomosis status; Z85.46 Personal history of malignant neoplasm of prostate; Z90.79 Acquired absence of other genital organ(s); Z85.038 Personal history of other malignant neoplasm of large intestine
CPT/HCPCS: 36415; 70450-TC; 71010-TC; 80048; 80053; 80061; 81003; 82550; 83721; 83735; 83880; 84100; 84439; 84443; 84484; 85025; 85027; 85610; 87086; 93005; 93010; 93306-TC; 99284-25; G0378

== ENCOUNTER 2017-06-01 19:54 | Emergency (ER) | payer OTHER, BC ==
[2017-06-01 20:30] VITALS: BMI 29.7
--- NOTE | 2017-06-01 21:28 | PDOC ---
History of Present Illness - General History Source: Patient Exam Limitations: No Limitations - History of Present Illness Initial Comments: 06/01/17 21:54 The patient is an 87 year old male with history of hyperlipidemia, irregular heart beat on Cardia XL, known proteinuria, who presents to the ED after measuring elevated blood pressure at home this evening. He states he measured his blood pressure at home out of curiosity and noted it to be very elevated. He took his Cardia and retook his blood pressure to 178/102. He came to the ED for further evaluation. On ED arrival, his blood pressure was noted to be 152/ 89. The patient denies any chest pain, shortness of breath, lightheadedness or palpitations. He denies headache, blurred vision, or paresthesias. He denies any nausea, vomiting, or diarrhea. He denies any other physical complaint. He does endorse eating a salty lunch today. PCP: Dr. Sylvester Hem/Onc: Dr. Webster <Vivien Lund - Last Filed: 06/01/17 22:36> <Dilia Golden - Last Filed: 06/01/17 23:01> - General Chief Complaint: Blood Pressure Problem Stated Complaint: BLOOD PRESSURE PROBLEM Time Seen by Provider: 06/01/17 21:17 Past History <Vivien Lund - Last Filed: 06/01/17 22:36> - Past Medical History Anemia: Yes Asthma: No Cancer: Yes (prostate prostatectomy colon cancer colectomy) Cardiac Disorders: Yes (Coronary Artery Disease) CVA: No COPD: No CHF: No Dementia: No Diabetes: No GI Disorders: No Disorders: Yes (stress incontinence) HTN: No Hypercholesterolemia: Yes Liver Disease: No Seizures: No Thyroid Disease: No - Surgical History Abdominal Surgery: Yes (colon cancer colectomy appendectomy) Appendectomy: Yes Cardiac Surgery: No Cholecystectomy: No (gall stones) Lung Surgery: No Neurologic Surgery: No - Immunization History Immunization Up to Date: Yes - Psycho/Social/Smoking Cessation Hx Anxiety: No Suicidal Ideation: No Smoking History: Never smoked Have you smoked in the past 12 months: No Information on smoking cessation initiated: No Hx Alcohol Use: No Drug/Substance Use Hx: No Substance Use Type: None Hx Substance Use Treatment: No <Dilia Golden - Last Filed: 06/01/17 23:01> - Past Medical History Allergies/Adverse Reactions: Allergies Allergy/AdvReac Type Severity Reaction Status Date / Time No Known Allergies Allergy Verified 06/01/17 20:28 Home Medications: Ambulatory Orders Aspirin [ASA -] 81 mg PO DAILY 01/08/15 Valsartan [Diovan] 40 mg PO DAILY #30 tablet 06/01/17 Review of Systems - Review of Systems Able to Perform ROS?: Yes Comments:: 06/01/17 21:58 GENERAL/CONSTITUTIONAL: No fever or chills. No weakness. HEAD, EYES, EARS, NOSE AND THROAT: No change in vision. No ear pain or discharge. No sore throat. CARDIOVASCULAR: No chest pain or shortness of breath. RESPIRATORY: No cough, wheezing, or hemoptysis. GASTROINTESTINAL: No nausea, vomiting, diarrhea or constipation. GENITOURINARY: No dysuria, frequency, or change in urination. MUSCULOSKELETAL: No joint or muscle swelling or pain. No neck or back pain. SKIN: No rash NEUROLOGIC: No headache, vertigo, loss of consciousness, or change in strength/ sensation. ENDOCRINE: No increased thirst. No abnormal weight change. HEMATOLOGIC/LYMPHATIC: No anemia, easy bleeding, or history of blood clots. ALLERGIC/IMMUNOLOGIC: No hives or skin allergy. <Vivien Lund - Last Filed: 06/01/17 22:36> *Physical Exam - Vital Signs Last Vital Signs Temp Pulse Resp BP Pulse Ox 98.3 F 77 18 145/89 96 06/01/17 20:26 06/01/17 20:26 06/01/17 20:26 06/01/17 20:26 06/01/17 20:26 - Physical Exam Comments: 06/01/17 21:58 GENERAL: Awake, alert, and fully oriented, in no acute distress HEAD: No signs of trauma EYES: PERRLA, EOMI, sclera anicteric, conjunctiva clear ENT: Auricles normal inspection, hearing grossly normal, nares patent, oropharynx clear without exudates. Moist mucosa NECK: Normal ROM, supple, no lymphadenopathy, JVD, or masses LUNGS: Breath sounds equal, clear to auscultation bilaterally. No wheezes, and no crackles HEART: Regular rate and rhythm, normal S1 and S2, no murmurs, rubs or gallops ABDOMEN: Soft, nontender, normoactive bowel sounds. No guarding, no rebound. No masses EXTREMITIES: Normal range of motion, no edema. No clubbing or cyanosis. No cords, erythema, or tenderness NEUROLOGICAL: Cranial nerves II through XII grossly intact. Normal speech, normal gait SKIN: Warm, Dry, normal turgor, no rashes or lesions noted. <Vivien Lund - Last Filed: 06/01/17 22:36> - Vital Signs Last Vital Signs Temp Pulse Resp BP Pulse Ox 98.3 F 77 18 145/89 96 06/01/17 20:26 06/01/17 20:26 06/01/17 20:26 06/01/17 20:26 06/01/17 20:26 <Dilia Golden - Last Filed: 06/01/17 23:01> Heart Score/ECG Review #1 06/01/17 22:36 EKG obtained at 21:54. NSR at 66 bpm with occasional PVCs <Vivien Lund - Last Filed: 06/01/17 22:36> ED Treatment Course - Additional Consults Time Called: 22:30 Reason/Comments: Case discussed with [facility], Dr. Hart <Vivien Lund - Last Filed: 06/01/17 22:36> Medical Decision Making - Medical Decision Making 06/01/17 22:59 Pt's BP on initial eval was 160-170 systolic; BP now is 170 systolic despite 40mg diovan. I will treat with 80mg more diovan and pt will be discharged home. I spoke to Dr. Feng who agrees that pt should go home with diovan 40mg daily <Dilia Golden - Last Filed: 06/01/17 23:01> *DC/Admit/Observation/Transfer - Attestations Scribe Attestion: 06/01/17 21:59 Documentation prepared by Vivien Lund, acting as senior medical technologist for Dilia Golden MD. <Vivien Lund - Last Filed: 06/01/17 22:36> - Discharge Dispostion Admit: No <Dilia Golden - Last Filed: 06/01/17 23:01> Diagnosis at time of Disposition: HTN (hypertension) - Discharge Dispostion Disposition: HOME Condition at time of disposition: Stable - Prescriptions Prescriptions: Valsartan [Diovan] 40 mg PO DAILY #30 tablet - Referrals Referrals: Stanley Sylvester MD [Primary Care Provider] - - Patient Instructions Printed Discharge Instructions: DI for High Blood Pressure, How to Monitor Your Blood Pressure at Home
[2017-06-01] MEDS ORDERED: VALSARTAN 40 MG TABLET (FP) PO ONE ×2 (21:54→22:58)
[2017-06-01] MEDS ORDERED: VALSARTAN 80 MG TABLET (UD) ONE ×2 (22:15→23:04)
[2017-06-01 23:26] VITALS: BP 171/86; PULSE 85; TEMP 98.1
--- NOTE | 2017-06-12 13:15 | EKG ---
Test Reason : Blood Pressure : / mmHG Vent. Rate : 066 BPM Atrial Rate : 066 BPM P-R Int : 170 ms QRS Dur : 092 ms QT Int : 392 ms P-R-T Axes : 016 -05 014 degrees QTc Int : 410 ms SINUS RHYTHM WITH OCCASIONAL PREMATURE VENTRICULAR COMPLEXES OTHERWISE NORMAL ECG WHEN COMPARED WITH ECG OF 22-MAR-2017 00:37, NO SIGNIFICANT CHANGE WAS FOUND Confirmed by KARRIE CORCORAN MD ([id number]) on 06/12/2017 1:14:34 PM Referred By: Confirmed By:KARRIE CORCORAN MD
== END 2017-06-01 23:26 | disposition home or self-care (01) ==
LOC: JER 19:54
DX: I10 Essential (primary) hypertension (principal); I25.10 Atherosclerotic heart disease of native coronary artery without angina pectoris; E78.00 Pure hypercholesterolemia, unspecified; Z85.46 Personal history of malignant neoplasm of prostate; Z85.038 Personal history of other malignant neoplasm of large intestine
CPT/HCPCS: 93005; 93010; 99281-25

== ENCOUNTER 2018-06-23 08:20 | Day surgery (SDC) | payer OTHER, BC ==
[2018-06-22 14:39] VITALS: BMI 34.1
[2018-06-23] MEDS ORDERED: PROPOFOL 20 ML ONE ×5 (08:35)
[2018-06-23] MEDS ORDERED: LIDOCAINE HCL/PF 2% SDV 5ML VIAL ONE (08:35)
[2018-06-23 09:37] VITALS: TEMP 98
[2018-06-23 14:57] VITALS: BP 130/69; PULSE 60
--- NOTE | 2018-06-24 18:39 | PATH ---
Surgical Pathology Report Patient Name: CUATE FERRER [facility]. Rec. #: [id number] /Age/Gender: 1930 (Age: 88) / M Account: [id number] Location: U-ENDOSCOPY Taken: 06/23/2018 Received: 06/23/2018 Reported: 06/24/2018 Physicians: Cuate Zavala M.D. Specimen(s) Received A: BX RIGHT COLON POLYP B: BX TRANSVERSE COLON POLYP C: POLYP SIGMOID Clinical History Colon cancer surveillance, history of colon polyp Postoperative diagnosis: Colon polyps Final Diagnosis A. COLON, RIGHT, POLYPS, POLYPECTOMY: TUBULAR ADENOMA(S). B. TRANSVERSE COLON, POLYP, POLYPECTOMY: TUBULAR ADENOMA. C. SIGMOID COLON, RIGHT, POLYP, POLYPECTOMY: TUBULAR ADENOMA. Electronically Signed Annmarie Collins M.D. Gross Description A. Received in formalin, labeled "right colon polyps" are 2 [place], irregular portions of soft tissue measuring 0.3 and 0.4 cm. in greatest dimension. The specimens are submitted in toto in one cassette. B. Received in formalin, labeled "transverse colon polyp" are 2 [place], irregular portions of soft tissue measuring 0.3 and 0.4 cm. in greatest dimension. The specimens are submitted in toto in one cassette. C. Received in formalin, labeled "sigmoid polyp" is a camp[place], irregular portion of soft tissue measuring 0.4 cm. in greatest dimension. The specimen is submitted in toto in one cassette. 06/23/2018 [place]06/23/2018
== END 2018-06-23 10:30 | disposition home or self-care (01) ==
LOC: JASU-ENDO 08:20
PROVIDERS: ATTEND Internal Medicine Gastroenterology
PROC: 0DBL8ZX Excision of Transverse Colon, Via Natural or Artificial Opening Endoscopic, Diagnostic (ICD-10-PCS; 2018-06-23)
PROC: 0DBN8ZX Excision of Sigmoid Colon, Via Natural or Artificial Opening Endoscopic, Diagnostic (ICD-10-PCS; 2018-06-23)
PROC: 0DBK8ZX Excision of Ascending Colon, Via Natural or Artificial Opening Endoscopic, Diagnostic (ICD-10-PCS; principal; 2018-06-23 08:30)
DX: Z12.11 Encounter for screening for malignant neoplasm of colon (principal); Z85.038 Personal history of other malignant neoplasm of large intestine; Z86.010 Personal history of colon polyps; D12.2 Benign neoplasm of ascending colon; D12.5 Benign neoplasm of sigmoid colon; D12.3 Benign neoplasm of transverse colon; K57.30 Diverticulosis of large intestine without perforation or abscess without bleeding
CPT/HCPCS: 88305-TC

== ENCOUNTER 2018-06-28 22:31 | Emergency (ER) | payer OTHER, BC ==
[2018-06-28 23:09] VITALS: BP 138/76; PULSE 61; TEMP 97.9; BMI 30.6
--- NOTE | 2018-06-28 23:53 | PDOC ---
Attending Attestation - HPI HPI: 06/29/18 00:57 The patient is a 88 year old male with past medical history of CAD, angina, sleep apnea, Cured colon CA s/p resection 3 yrs ago (no chemo/rad) and prostate CA s/p prostatectomy 20 yrs ago presents to the emergency department s/p a fall. The patient presents after tripping over steps and landing on his outstretched hands. Denies taking anything medication. Denies chest pain or shortness of breath. Denies the use of blood thinner. Denies head trauma or injury. Denies numbness, tingling or weakness. Allergies: NKDA Social history: None reported. PCP: Dr Montaño Cardio: Dr Hart - Medical Decision Making 06/29/18 00:57 Documentation prepared by Michelle Buckner, acting as medical assistant internal medicine for Dilia Golden MD. <Michelle Buckner - Last Filed: 06/29/18 00:57> - Resident Resident Name: Aguilar Hernandez - ED Attending Attestation I have performed the following: I have examined & evaluated the patient, The case was reviewed & discussed with the resident, I agree w/resident's findings & plan - Physicial Exam PE: 06/29/18 00:40 Agree with resident exam - Medical Decision Making 06/29/18 00:40 No fracture seen; pt will be placed in a thumb spica splint and asked to follow with ortho. 06/29/18 00:59 Patient Name: CESAR FERRER THIS IS A PRELIMINARY REPORT FROM [facility] DATE OF SERVICE: 2018-06-29 00:25:01 IMAGES: 4 EXAM: WRIST W/HAND-RIGHT* HISTORY: Status post fall COMPARISON: None. FINDINGS: There is no fracture or dislocation. Minimal degenerative changes are noted at the base of the thumb. IMPRESSION: No fracture. <Dilia Golden - Last Filed: 06/29/18 00:59>
--- NOTE | 2018-06-29 | PDOC ---
History of Present Illness - General Chief Complaint: Pain Stated Complaint: HAND INJURY Time Seen by Provider: 06/28/18 23:47 History Source: Patient Exam Limitations: No Limitations - History of Present Illness Initial Comments: 06/28/18 23:55 Patient is an 88M with history of HTN, HLD and MGUS here today complaining of right wrist pain after a fall today. He reports falling on an outstretched hand after tripping on a stair today. Patient has not taken anything for pain. Denies chest pain, loc, head trauma. Patient takes aspirin, no blood thinners. Denies pain elsewhere. Past History - Past Medical History Allergies/Adverse Reactions: Allergies Allergy/AdvReac Type Severity Reaction Status Date / Time No Known Allergies Allergy Verified 06/01/17 20:28 Home Medications: Ambulatory Orders Aspirin [ASA -] 81 mg PO DAILY 01/08/15 Valsartan [Diovan] 40 mg PO DAILY #30 tablet 06/01/17 Cholecalciferol (Vitamin D3) [Vitamin D3] 2,000 unit PO DAILY 06/22/18 Cranberry 400 mg PO DAILY 06/22/18 Diltiazem HCl [Cartia Xt] 120 mg PO DAILY 06/22/18 Rosuvastatin Calcium [Crestor] 5 mg PO DAILY 06/22/18 Ubidecarenone [Co Q-10] 100 mg PO DAILY 06/22/18 Anemia: Yes Asthma: No Cancer: Yes (prostate prostatectomy colon cancer colectomy) Cardiac Disorders: Yes (Coronary Artery Disease) CVA: No COPD: No CHF: No DVT: No Dementia: No Diabetes: No Dialysis: No GI Disorders: No Disorders: No (stress incontinence) HTN: No Hypercholesterolemia: Yes Liver Disease: No Seizures: No Thyroid Disease: No - Surgical History Abdominal Surgery: Yes (colon cancer colectomy appendectomy) Appendectomy: Yes Cardiac Surgery: No Cholecystectomy: No (gall stones) Lung Surgery: No Neurologic Surgery: No Orthopedic Surgery: No - Immunization History Immunization Up to Date: Yes - Suicide/Smoking/Psychosocial Hx Smoking History: Never smoked Have you smoked in the past 12 months: No Information on smoking cessation initiated: No Hx Alcohol Use: No Drug/Substance Use Hx: No Substance Use Type: None Hx Substance Use Treatment: No Review of Systems - Review of Systems Comments:: 06/28/18 23:56 GENERAL/CONSTITUTIONAL: No fever or chills. No weakness. HEAD, EYES, EARS, NOSE AND THROAT: No change in vision. No sore throat. CARDIOVASCULAR: No chest pain or shortness of breath RESPIRATORY: No cough, wheezing, or hemoptysis. GASTROINTESTINAL: No nausea, vomiting, diarrhea or constipation. GENITOURINARY: No dysuria, frequency, or change in urination. MUSCULOSKELETAL: +wrist pain on right side. No neck or back pain. SKIN: No rash NEUROLOGIC: No headache, vertigo, loss of consciousness, or change in strength/ sensation. ALLERGIC/IMMUNOLOGIC: No hives or skin allergy. *Physical Exam - Vital Signs Last Vital Signs Temp Pulse Resp BP Pulse Ox 97.9 F 61 20 138/76 97 06/28/18 23:07 06/28/18 23:07 06/28/18 23:07 06/28/18 23:07 06/28/18 23:07 - Physical Exam Comments: 06/28/18 23:58 GENERAL: Awake, alert, and fully oriented, in no acute distress R WRIST: No obvious deformity. Neurovascularly intact. +snuffbox tenderness + pain with axial thumb loading HEAD: No signs of trauma, normocephalic, atraumatic EYES: PERRLA, EOMI, sclera anicteric, conjunctiva clear ENT: Auricles normal inspection, hearing grossly normal, nares patent, oropharynx clear without exudates. Moist mucosa NECK: Normal ROM, supple, no lymphadenopathy, JVD, or masses LUNGS: No distress, speaks full sentences, clear to auscultation bilaterally HEART: Regular rate and rhythm, normal S1 and S2, no murmurs, rubs or gallops, peripheral pulses normal and equal bilaterally. NEUROLOGICAL: Cranial nerves II through XII grossly intact. Normal speech, normal gait, no focal sensorimotor deficits SKIN: Warm, Dry, normal turgor, no rashes or lesions noted. ED Treatment Course - RADIOLOGY Radiology Studies Ordered: Category Date Time Status WRIST W/HAND-RIGHT* [RAD] Stat Radiology 06/28/18 23:53 Ordered Medical Decision Making - Medical Decision Making 06/28/18 23:59 Patient is 88M here today with wrist pain. Vital signs stable and normal. Given percocet for pain control. Will evaluate with x-rays. Will likely splint with thumb spica and have patient follow up with ortho. 06/29/18 00:52 Wet read of x-rays negative. Placed in thumb spica splint. Given ortho follow up. Discharged home with return precautions. *DC/Admit/Observation/Transfer Diagnosis at time of Disposition: Wrist pain - Discharge Dispostion Disposition: HOME Condition at time of disposition: Good Decision to Admit order: No - Referrals Referrals: Stanley Sylvester MD [Primary Care Provider] - Rusty Wetzel MD [Staff Physician] - - Patient Instructions Printed Discharge Instructions: DI for Wrist Pain Additional Instructions: Please call ortho tomorrow morning for further follow up. Please return if you have any new, worsening or concerning symptoms. - Post Discharge Activity
== END 2018-06-29 01:26 | disposition home or self-care (01) ==
LOC: JER 22:31
PROC: 2W3CX1Z Immobilization of Right Lower Arm using Splint (ICD-10-PCS; principal; 2018-06-28)
DX: M25.531 Pain in right wrist (principal); W10.8XXA Fall (on) (from) other stairs and steps, initial encounter; Y93.89 Activity, other specified; Y92.89 Other specified places as the place of occurrence of the external cause; Y99.8 Other external cause status; I25.119 Atherosclerotic heart disease of native coronary artery with unspecified angina pectoris; G47.30 Sleep apnea, unspecified; Z85.038 Personal history of other malignant neoplasm of large intestine; Z85.46 Personal history of malignant neoplasm of prostate; Z90.49 Acquired absence of other specified parts of digestive tract; Z90.79 Acquired absence of other genital organ(s)
CPT/HCPCS: 29125; 73110-TC-RT-FY; 73130-TC-RT-FY; 99281-25

== ENCOUNTER 2019-01-03 11:54 | Emergency (ER) | payer OTHER, BC ==
[2019-01-03 12:09] VITALS: BP 120/74; PULSE 85; TEMP 97.5; BMI 32.4
--- NOTE | 2019-01-03 12:22 | PDOC ---
Attending Attestation - Resident Resident Name: Aguilar Hernandez - ED Attending Attestation I have performed the following: I have examined & evaluated the patient, The case was reviewed & discussed with the resident, I agree w/resident's findings & plan, Exceptions are as noted - HPI HPI: 01/03/19 13:51 88 yo M HTN HLD, h/o colon ca s/p resection , and MGUS ( followed by dr hurd) here with /co fall 1 week ago, now with left sided chest pain. does feel like cant take deep breath . did not take anything for pain prior arrival. h/o prior rib fractures and pneumonia many years ago. when fel did not hit head. no other c/o body aches or pain. left leg swelling which is chronic. no f/c no cough. no h/o other lung disease. - Physicial Exam PE: 01/03/19 13:53 awake alert head atraumatic. no cervical spine tenderness. lungs clear bilaterally left lateral chest wall ttp. no crepitus. no step off heart rrr no mrg abd soft ntnd ext wwp. mild bilat nonpitting edema. left >right. hips NT FROM. nuero alert orientd x 3 skin warm and dry no eccymosis. - Medical Decision Making 01/03/19 13:55 plan differential acs, rib fx. effusion/ hemothorax, ptx, secondary pna, due to h/o leg swelling will obtain doppler r/o dvt. ct chest r/o pe or occult fx. cxr negative for pna effusion or fx. labs unremarakbl. Heart Score/ECG Review #1 General ECG Interpretation: Sinus Rhythm, Normal Rate (78), Normal Intervals, No acute ischemic changes Compared to previous ECG there are: Other (TWI III)
--- NOTE | 2019-01-03 12:52 | PDOC ---
History of Present Illness - General Chief Complaint: Injury Stated Complaint: LEFT SIDE CHEST WAL PAIN Time Seen by Provider: 01/03/19 11:58 History Source: Patient Exam Limitations: No Limitations - History of Present Illness Initial Comments: 01/03/19 12:47 Patient is an 88M with history of CAD, HTN, HLD, Colon ca s/p resection (no chemo/radiation) here today complaining of pain to his left ribs. He states that he fell about a week ago, landing on his left side onto a chair arm. No head or neck trauma. The pain had been getting better, but got worse today. Endorses shortness of breath and the pain increasing with inspiration. Patient states that his L leg has been swollen for several years, but has not had an ultrasound to evaluate for a blood clot. Denies fevers, chills, nausea, vomiting. Denies dysuria. Denies recent travel and history of blood clots. Past History - Past Medical History Allergies/Adverse Reactions: Allergies Allergy/AdvReac Type Severity Reaction Status Date / Time No Known Allergies Allergy Verified 01/03/19 11:55 Home Medications: Ambulatory Orders Aspirin [ASA -] 81 mg PO DAILY 01/08/15 Cholecalciferol (Vitamin D3) [Vitamin D3] 2,000 unit PO DAILY 06/22/18 Cranberry 400 mg PO DAILY 06/22/18 Diltiazem HCl [Cartia Xt] 120 mg PO DAILY 06/22/18 Rosuvastatin Calcium [Crestor] 5 mg PO ASDIR 06/22/18 Ubidecarenone [Co Q-10] 100 mg PO DAILY 06/22/18 Lidocaine 5% Patch [Lidoderm -] 1 patch TP DAILY #7 patch 01/03/19 Olmesartan Medoxomil 5 mg PO DAILY 01/03/19 Anemia: Yes Asthma: No Cancer: Yes (prostate prostatectomy colon cancer colectomy) Cardiac Disorders: Yes (Coronary Artery Disease) CVA: No COPD: No CHF: No DVT: No Dementia: No Diabetes: No Dialysis: No GI Disorders: No Disorders: No (stress incontinence) HTN: No Hypercholesterolemia: Yes Liver Disease: No Seizures: No Thyroid Disease: No - Surgical History Abdominal Surgery: Yes (colon cancer colectomy appendectomy) Appendectomy: Yes Cardiac Surgery: No Cholecystectomy: No (gall stones) Lung Surgery: No Neurologic Surgery: No Orthopedic Surgery: No - Immunization History Immunization Up to Date: Yes - Suicide/Smoking/Psychosocial Hx Smoking History: Never smoked Have you smoked in the past 12 months: No Information on smoking cessation initiated: No Hx Alcohol Use: No Drug/Substance Use Hx: No Substance Use Type: None Hx Substance Use Treatment: No Review of Systems - Review of Systems Able to Perform ROS?: Yes Comments:: 01/03/19 12:52 GENERAL/CONSTITUTIONAL: No fever or chills. No weakness. HEAD, EYES, EARS, NOSE AND THROAT: No change in vision. No sore throat. CARDIOVASCULAR: No chest pain +shortness of breath RESPIRATORY: No cough, wheezing, or hemoptysis. GASTROINTESTINAL: No nausea, vomiting, diarrhea or constipation. GENITOURINARY: No dysuria, frequency, or change in urination. MUSCULOSKELETAL: No joint or muscle swelling or pain. No neck or back pain. SKIN: No rash NEUROLOGIC: No headache, vertigo, loss of consciousness, or change in strength/ sensation. ENDOCRINE: No increased thirst. No abnormal weight change HEMATOLOGIC/LYMPHATIC: No anemia, easy bleeding, or history of blood clots. ALLERGIC/IMMUNOLOGIC: No hives or skin allergy. *Physical Exam - Vital Signs Last Vital Signs Temp Pulse Resp BP Pulse Ox 97.5 F L 85 20 120/74 100 01/03/19 11:55 01/03/19 11:55 01/03/19 11:55 01/03/19 11:55 01/03/19 11:55 - Physical Exam Comments: 01/03/19 12:52 GENERAL: Awake, alert, and fully oriented, in no acute distress CHEST: No hematoma, +focal tenderness at approximately 10th rib at mid-axillary line HEAD: No signs of trauma, normocephalic, atraumatic EYES: PERRLA, EOMI, sclera anicteric, conjunctiva clear ENT: Auricles normal inspection, hearing grossly normal, nares patent, oropharynx clear without exudates. Moist mucosa NECK: Normal ROM, supple, no lymphadenopathy, JVD, or masses LUNGS: No distress, speaks full sentences, clear to auscultation bilaterally HEART: Regular rate and rhythm, normal S1 and S2, no murmurs, rubs or gallops, peripheral pulses normal and equal bilaterally. ABDOMEN: Soft, nontender, normoactive bowel sounds. No guarding, no rebound. No masses EXTREMITIES: Normal inspection, Normal range of motion, no edema. No clubbing or cyanosis. NEUROLOGICAL: Cranial nerves II through XII grossly intact. Normal speech, normal gait, no focal sensorimotor deficits SKIN: Warm, Dry, normal turgor, no rashes or lesions noted. Moderate Sedation - Procedure Monitoring Vital Signs: Procedure Monitoring Vital Signs Temperature 97.5 F L 01/03/19 11:55 Pulse Rate 85 01/03/19 11:55 Respiratory Rate 20 01/03/19 11:55 Blood Pressure 120/74 01/03/19 11:55 O2 Sat by Pulse Oximetry (%) 100 01/03/19 11:55 ED Treatment Course - LABORATORY CBC & Chemistry Diagram: 01/03/19 12:42 01/03/19 12:42 - RADIOLOGY Radiology Studies Ordered: Category Date Time Status CHEST CTA [CT] Stat CT Scan 01/03/19 12:15 Ordered CHEST PA & LAT [RAD] Stat Radiology 01/03/19 12:10 Ordered RIBS-LEFT SIDE [RAD] Stat Radiology 01/03/19 12:10 Ordered DUPLEX VASCUL US-1 LEG [US] Stat Ultrasound 01/03/19 12:15 Ordered - Medications Given in the ED: ED Medications Discontinued Medications Generic Name Dose Route Start Last Admin Trade Name Freq PRN Reason Stop Dose Admin Oxycodone/Acetaminophen 1 combo 01/03/19 12:10 01/03/19 12:38 Percocet 5/325 - PO 01/03/19 12:11 1 combo ONCE ONE Administration Medical Decision Making - Medical Decision Making 01/03/19 12:53 Patient is 88M with history of colon ca, htn, hld, cad here today with left side pain s/p fall. Pain had been resolving then suddenly got worse. + L leg swelling, never worked up per patient. DDx includes, but is not limited to: rib bruise/fracture, pneumothorax, pulmonary contusion, PE, DVT. EKG shows normal sinus rhythm. No st elevations/depressions. Normal axis. Normal intervals. No significant t wave abnormalities. 01/03/19 16:11 CBC normal. Cmp reassuring. Trop neg. CXR and ribs series show no fracture or acute abnormality. CTA shows no acute fracture, pe. Does show chronic lung disease. Patient advised of results, instructed to f/u with PCP. Given lidocaine patch for pain. *DC/Admit/Observation/Transfer Diagnosis at time of Disposition: Bruised ribs - Discharge Dispostion Disposition: HOME Condition at time of disposition: Good Decision to Admit order: No - Prescriptions Prescriptions: Lidocaine 5% Patch [Lidoderm -] 1 patch TP DAILY #7 patch - Referrals - Patient Instructions Printed Discharge Instructions: DI for Rib Contusion Additional Instructions: Please follow up with your primary care doctor. Please return if you have any new, worsening or concerning symptoms, especially fever, shortness of breath, and chest pain. - Post Discharge Activity
[2019-01-03 13:01] LABS: BASO % 0.6 % (0-2.0); EOS % 1.4 % (0-4.5); HEMATOCRIT 37.8 % (35.4-49); HEMOGLOBIN 12.7 GM/dl (11.7-16.9); MCH 33.2 pg (25.7-33.7); MCHC 33.6 g/dl (32.0-35.9); MEAN CELL VOLUME 98.9 fl (80-96); MEAN PLT VOLUME 8.4 fl (7.5-11.1); MONO % 13.3 % (3.8-10.2); NEUT % 43.7 % (42.8-82.8); PLATELET COUNT 180 K/MM3 (134-434); RBC 3.83 M/mm3 (4.00-5.60); RDW 12.4 % (11.9-15.9); WHITE BLOOD COUNT 2.9 K/mm3 (4.0-10.8)
[2019-01-03 13:10] LABS: ALBUMIN 3.6 g/dl (3.4-5.0); ALK PHOS 85 U/L (45-117); ANION GAP 9 MMOL/L (8-16); BLOOD UREA NITROGEN 19 mg/dl (7-18); CHLORIDE 104 mmol/L (98-107); CO2 25 mmol/L (21-32); CREATININE 1.3 mg/dl (0.55-1.3); GLUCOSE,RANDOM 133 mg/dl (74-106); POTASSIUM 4.5 mmol/L (3.5-5.1); SGOT/AST 36 U/L (15-37); SGPT/ALT 20 U/L (13-61); SODIUM 138 mmol/L (136-145); TOT PROT 7.5 g/dl (6.4-8.2)
[2019-01-03 13:25] LABS: INR 1.19 (0.82-1.09); PROTHROMBIN TIME (PATIENT) 13.3 SEC (10.2-13.0)
--- NOTE | 2019-01-03 15:42 | EKG ---
Test Reason : Blood Pressure : / mmHG Vent. Rate : 078 BPM Atrial Rate : 078 BPM P-R Int : 174 ms QRS Dur : 078 ms QT Int : 350 ms P-R-T Axes : 009 -13 005 degrees QTc Int : 399 ms NORMAL SINUS RHYTHM INFERIOR INFARCT , AGE UNDETERMINED ABNORMAL ECG WHEN COMPARED WITH ECG OF 01-JUN-2017 21:54, PREMATURE VENTRICULAR COMPLEXES ARE NO LONGER PRESENT INFERIOR INFARCT IS NOW PRESENT Confirmed by RAY JIMENEZ, JNONY ([id number]) on 01/03/2019 3:42:01 PM Referred By: LUZMA BOSTON Confirmed By:JONNY BELL MD
== END 2019-01-03 16:28 | disposition home or self-care (01) ==
LOC: FER 11:54
DX: S20.219A Contusion of unspecified front wall of thorax, initial encounter (principal); W01.190A Fall on same level from slipping, tripping and stumbling with subsequent striking against furniture, initial encounter; Y93.9 Activity, unspecified; Y92.9 Unspecified place or not applicable; I10 Essential (primary) hypertension; E78.5 Hyperlipidemia, unspecified; I25.10 Atherosclerotic heart disease of native coronary artery without angina pectoris; Z79.82 Long term (current) use of aspirin; Z85.038 Personal history of other malignant neoplasm of large intestine
CPT/HCPCS: 36415; 71046-TC-FY; 71101-TC-LT-FY; 71275-TC; 80053; 82550; 83735; 84484; 85025; 85610; 93005; 93971-TC; 99283-25

== ENCOUNTER 2020-12-30 11:44 | Emergency (ER) | payer OTHER, BC ==
[2020-12-30 12:10] VITALS: BMI 30.5
[2020-12-30 13:16] LABS: BASO % 0.5 % (0-2.0); HEMATOCRIT 35.3 % (35.4-49); HEMOGLOBIN 12.3 GM/dL (11.7-16.9); MCH 34.4 pg (25.7-33.7); MCHC 34.8 g/dl (32.0-35.9); MEAN CELL VOLUME 98.9 fl (80-96); MEAN PLT VOLUME 8.6 fl (7.5-11.1); MONO % 25.4 % (3.8-10.2); NEUT % 48.1 % (42.8-82.8); PLATELET COUNT 132 K/MM3 (134-434); RBC 3.57 M/mm3 (4.00-5.60); RDW 14.3 % (11.9-15.9); WHITE BLOOD COUNT 2.9 K/mm3 (4.0-10.0)
[2020-12-30 13:22] LABS: INR 1.55 (0.83-1.09); PROTHROMBIN TIME (PATIENT) 18.8 SEC (9.7-13.0)
[2020-12-30 13:25] LABS: ACTIVATED PTT 31.8 SECONDS (25.2-36.5)
[2020-12-30 13:35] LABS: CHLORIDE 108 mmol/L (98-107); POTASSIUM 4.2 mmol/L (3.5-5.1); SODIUM 140 mmol/L (136-145)
[2020-12-30 13:37] LABS: ALBUMIN 3.4 g/dl (3.4-5.0); ANION GAP 5 MMOL/L (8-16); CALCIUM 8.2 mg/dL (8.5-10.1); CO2 27 mmol/L (21-32); GLUCOSE,RANDOM 97 mg/dL (74-106); MAGNESIUM 2.2 mg/dL (1.8-2.4)
[2020-12-30 13:38] LABS: BLOOD UREA NITROGEN 21.5 mg/dL (7-18)
[2020-12-30 13:40] LABS: BILIRUBIN,DIRECT 0.2 mg/dL (0.0-0.2); CREATININE 1.7 mg/dL (0.55-1.3); SGOT/AST 39 U/L (15-37); SGPT/ALT 33 U/L (13-61)
[2020-12-30 13:42] LABS: BILIRUBIN,TOTAL 0.6 mg/dL (0.2-1); LDH 209 U/L (87-246); TOT PROT 7.5 g/dl (6.4-8.2)
[2020-12-30 13:43] LABS: ALK PHOS 108 U/L (45-117)
[2020-12-30 13:44] LABS: N-TERMINAL BNP 182.2 pg/ml (5-450)
[2020-12-30 14:08] LABS: ANISOCYTOSIS 1+; MACROCYTOSIS 0; PLATELET ESTIMATE DECREASED
[2020-12-30] MEDS ORDERED: ACETAMINOPHEN 325 MG TABLET (FP) PO ONE (14:20)
[2020-12-30] MEDS ORDERED: ACETAMINOPHEN 325 MG TABLET (FP) ONE ×2 (15:12→22:50)
[2020-12-30] MEDS ORDERED: BAMLANIVIMAB 700 MG in SODIUM CHLORIDE 180 ML IVPB ONE (16:14)
[2020-12-30 20:04] VITALS: BP 144/91; PULSE 74
[2020-12-30 22:32] VITALS: TEMP 98.5
[2020-12-30] MEDS ORDERED: ACETAMINOPHEN 500 MG TABLET (FP) PO ONE (22:49)
== END 2020-12-30 23:10 | disposition home or self-care (01) ==
LOC: JER 11:44
DX: R07.89 Other chest pain (principal)
CPT/HCPCS: 36415; 71045-TC-FY; 80053; 82248; 82550; 82728; 83605; 83615; 83735; 83880; 84484; 85025; 85379; 85610; 85730; 86140; 87804; 93005; 93010; 99285-25; C9803; M0239; Q0239; U0003

== ENCOUNTER 2021-08-24 12:24 | Emergency (ER) | payer OTHER, BC ==
[2021-08-24] MEDS ORDERED: KETOROLAC TROMETHAMINE 15 MG/ML VIAL IM ONE (12:38)
[2021-08-24] MEDS ORDERED: LIDOCAINE 5% TOPICAL PATCH TP ONE (12:39)
[2021-08-24 12:45] VITALS: BP 122/76; PULSE 95; TEMP 98; BMI 32.0
[2021-08-24] MEDS ORDERED: LIDOCAINE 5% TOPICAL PATCH ONE (13:39)
[2021-08-24] MEDS ORDERED: KETOROLAC TROMETHAMINE 15 MG/ML VIAL ONE (13:39)
[2021-08-24] MEDS ORDERED: LIDOCAINE PATCH REMOVAL MC SCH (22:00)
== END 2021-08-24 15:46 | disposition home or self-care (01) ==
LOC: FER 12:24
PROC: 3E0233Z Introduction of Anti-inflammatory into Muscle, Percutaneous Approach (ICD-10-PCS; principal; 2021-08-24)
DX: S22.010A Wedge compression fracture of first thoracic vertebra, initial encounter for closed fracture (principal); M54.5 Low back pain; X50.0XXA Overexertion from strenuous movement or load, initial encounter
CPT/HCPCS: 72131-TC; 81003; 99284-25